=== PATIENT | female | born 1995 | race Caucasian/White ===

== ENCOUNTER → 2018-06-04 10:35 | Emergency (ER) | payer OTHER ==
[2018-06-04] MEDS: SOD CHLORIDE 0.9% 1,000 ML IV (09:23)
[2018-06-04] MEDS: DICYCLOMINE 10 MG CAP PO (09:23)
[2018-06-04] MEDS: ONDANSETRON 4 MG INJ IV (09:23)
[2018-06-04] MEDS: morphine 2 MG INJ IV (09:23)
[2018-06-04 09:24] LABS: ADD MAN DIFF? NO
[2018-06-04 09:27] LABS: BASOPHILS % 0.4 % (0.0-2.0); EOSINOPHILS % 0.2 % (0.0-7.0); HEMATOCRIT 37.1 % (37.0-47.0); HEMOGLOBIN 12.8 g/dl (12.0-16.0); LYMPHOCYTES # 2.1 10^3/ul (0.8-2.9); LYMPHOCYTES % 25.9 % (15.0-51.0); MEAN CORPUSCULAR HEMOGLOBIN 28.8 pg (29.0-33.0); MEAN CORPUSCULAR HGB CONC 34.5 g/dl (32.0-37.0); MEAN CORPUSCULAR VOLUME 83.4 fl (82.0-101.0); MEAN PLATELET VOLUME 9.7 fl (7.4-10.4); MONOCYTE # 0.4 10^3/ul (0.3-0.9); MONOCYTES % 4.3 % (0.0-11.0); NEUTROPHIL # 5.6 10^3/ul (1.6-7.5); PLATELET COUNT 286 10^3/UL (140-415); RED BLOOD COUNT 4.45 10^6/ul (4.20-5.40); RED CELL DISTRIBUTION WIDTH 12.8 % (11.5-14.5)
[2018-06-04 09:27] LABS: WHITE BLOOD COUNT 8.2 10^3/ul (4.8-10.8)
[2018-06-04 09:42] LABS: ALANINE AMINOTRANSFERASE 22 IU/L (13-69); ALBUMIN 4.8 g/dl (3.3-4.9); ALKALINE PHOSPHATASE 120 IU/L (42-121); ANION GAP 15 (8-16); ASPARTATE AMINO TRANSFERASE 23 IU/L (15-46); BLOOD UREA NITROGEN 8 mg/dl (7-20); CALCIUM 9.4 mg/dl (8.4-10.2); CARBON DIOXIDE 26 mmol/L (21-31); CHLORIDE 103 mmol/L (97-110); CREATININE 0.56 mg/dl (0.44-1.00); GLUCOSE 101 mg/dl (70-220); LIPASE 56 U/L (23-300); POTASSIUM 3.9 mmol/L (3.5-5.1); SODIUM 140 mmol/L (135-144); TOTAL PROTEIN 7.8 g/dl (6.1-8.1)
[2018-06-04 09:45] LABS: ADD UMIC YES; UR ASCORBIC ACID NEGATIVE (NEGATIVE); UR BACTERIA FEW /HPF (NONE SEEN); UR BILIRUBIN (Dip) NEGATIVE (NEGATIVE); UR BLOOD (Dip) 2+ mg/dL (NEGATIVE); UR CLARITY CLEAR (CLEAR); UR COLOR YELLOW (YELLOW); UR GLUCOSE (Dip) NEGATIVE (NEGATIVE); UR KETONES (Dip) NEGATIVE (NEGATIVE); UR LEUKOCYTE ESTERASE (Dip) 1+ Leu/ul (NEGATIVE); UR NITRITE (Dip) NEGATIVE (NEGATIVE); UR RBC 24 /HPF (0-5); UR SPECIFIC GRAVITY (Dip) 1.016 (1.003-1.030); UR TOTAL PROTEIN (Dip) NEGATIVE (NEGATIVE); UR UROBILINOGEN (Dip) NEGATIVE (NEGATIVE); UR WBC 9 /HPF (0-5)
[~2018-06-04 10:35] MED LIST: morphine 4 MG/ML VIAL IV
== END | disposition home or self-care (01) ==
DX: K80.20 Calculus of gallbladder without cholecystitis without obstruction (principal)
CPT/HCPCS: 36415; 76705; 80053; 81001; 81025; 83690; 85025; 87086; 96361; 96374; 96375; 99285-25

== ENCOUNTER 2018-06-11 08:04 | Day surgery (SDC) | payer OTHER ==
[~2018-06-11 08:04] MED LIST changes: +ACETAMINOPHEN 1000 MG/100 ML IVPB; +CEFAZOLIN 1 GM INJ; +EPHEDrine SULFATE 50 MG/5 ML SYG; -morphine 4 MG/ML VIAL IV
[2018-06-11] MEDS: SOD CHLORIDE 0.9% 1,000 ML IV (09:10)
[2018-06-11] MEDS ORDERED: BUPIVACAINE 0.25% (MPF) 30 ML INJ (09:16)
[2018-06-11] MEDS ORDERED: PROPOFOL 20 ML (09:27)
[2018-06-11] MEDS ORDERED: LIDOCAINE 2% (SDV) 5 ML INJ (09:27)
[2018-06-11] MEDS ORDERED: ROCURONIUM 50 MG INJ (09:27)
[2018-06-11] MEDS ORDERED: SUCCINYLCHOLINE CHLORIDE 100 MG/5 ML SYG IV (09:27)
[2018-06-11] MEDS ORDERED: MIDAZOLAM 1 MG/ML 2 ML INJ (09:28)
[2018-06-11] MEDS ORDERED: FENTAnyl 50 MCG/ML VIAL (09:28)
[2018-06-11] MEDS ORDERED: DIPHENHYDRAMINE 50 MG INJ IV (09:30)
[2018-06-11] MEDS ORDERED: FENTAnyl 50 MCG/ML VIAL IV ×2 (09:30)
[2018-06-11] MEDS ORDERED: OXYCODONE/ACETAMINOPHEN (5/325) TAB PO (09:30)
[2018-06-11] MEDS ORDERED: MEPERIDINE 25 MG INJ IV (09:30)
[2018-06-11] MEDS ORDERED: LABETALOL HCL 20MG INJ IV (09:30)
[2018-06-11] MEDS ORDERED: ROPIVACAINE 0.5 % 30 ML VIAL (09:30)
[2018-06-11] MEDS ORDERED: hydrALAzine 20 MG INJ IV (09:30)
[2018-06-11] MEDS ORDERED: HYDROmorphONE 1 MG/5 ML IV SYRINGE IV ×2 (09:30)
[2018-06-11] MEDS ORDERED: DEXAMETHASONE 4 MG/ML 1 ML INJ ×2 (09:59→10:33)
[2018-06-11] MEDS ORDERED: FAMOTIDINE 20 MG INJ (09:59)
[2018-06-11] MEDS ORDERED: ONDANSETRON 4 MG INJ (09:59)
[2018-06-11] MEDS: CEFAZOLIN 2 GM/50 ML (PMX) 50 ML IVPB (10:02)
[2018-06-11] MEDS ORDERED: SUGAMMADEX SODIUM 200 MG/2 ML VIAL IV (10:20)
[2018-06-11] MEDS ORDERED: KETOROLAC 30 MG INJ (10:25)
[2018-06-11] MEDS: ONDANSETRON 4 MG INJ IV (10:58)
[2018-06-11] MEDS: PROCHLORPERAZINE 10 MG INJ IV (10:58)
[2018-06-11] MEDS: FENTAnyl 50 MCG/ML VIAL IV (11:32)
[2018-06-11] MEDS: HYDROmorphONE 1 MG/5 ML IV SYRINGE IV (11:33)
[2018-06-11] MEDS: HYDROCODONE/APAP (5/325) TAB PO (12:22)
== END 2018-06-11 13:20 | disposition home or self-care (01) ==
LOC: SDS 08:04
DX: K80.10 Calculus of gallbladder with chronic cholecystitis without obstruction (principal)
CPT/HCPCS: 47562; 88304

== ENCOUNTER 2018-06-16 20:55 | Emergency (ER) | payer OTHER ==
[2018-06-16] MEDS: DIPHENHYDRAMINE 25 MG CAP PO (23:00)
[2018-06-16] MEDS: traMADol 50 MG TAB PO (23:00)
[2018-06-16 23:39] LABS: ADD MAN DIFF? NO
[2018-06-16 23:44] LABS: BASOPHIL # 0.1 10^3/ul (0.0-0.1); BASOPHILS % 0.4 % (0.0-2.0); EOSINOPHILS # 0.2 10^3/ul (0.0-0.5); EOSINOPHILS % 1.5 % (0.0-7.0); HEMATOCRIT 36.2 % (37.0-47.0); HEMOGLOBIN 12.5 g/dl (12.0-16.0); LYMPHOCYTES # 4.1 10^3/ul (0.8-2.9); LYMPHOCYTES % 35.5 % (15.0-51.0); MEAN CORPUSCULAR HEMOGLOBIN 28.8 pg (29.0-33.0); MEAN CORPUSCULAR HGB CONC 34.5 g/dl (32.0-37.0); MEAN CORPUSCULAR VOLUME 83.4 fl (82.0-101.0); MONOCYTE # 0.8 10^3/ul (0.3-0.9); MONOCYTES % 6.6 % (0.0-11.0); NEUTROPHIL # 6.4 10^3/ul (1.6-7.5); NEUTROPHILS % 55.7 % (39.0-77.0); PLATELET COUNT 304 10^3/UL (140-415); RED BLOOD COUNT 4.34 10^6/ul (4.20-5.40); RED CELL DISTRIBUTION WIDTH 12.7 % (11.5-14.5)
[2018-06-16 23:44] LABS: WHITE BLOOD COUNT 11.5 10^3/ul (4.8-10.8)
== END 2018-06-16 23:59 | disposition home or self-care (01) ==
LOC: FTE 20:55
DX: K91.840 Postprocedural hemorrhage of a digestive system organ or structure following a digestive system procedure (principal)
CPT/HCPCS: 85025; 99283